=== PATIENT | male | born 1985 | race Caucasian/White ===

== ENCOUNTER 2020-07-29 06:55 | Day surgery (SDC) | payer OTHER ==
[~2020-07-29 06:55] MED LIST: Dextrose 5%-0.45% NaCl 1,000 ML IV SCH; Midazolam 1 MG/ML 2 ML SDV ONE; Sodium Chloride 0.9% 10 ML Syringe FLUSH PRN; fentaNYL 100 MCG/2 ML SDV ONE
[2020-07-29] MEDS ORDERED: fentaNYL 100 MCG/2 ML SDV IV ONE ×3 (06:56→07:47)
[2020-07-29] MEDS ORDERED: Midazolam 1 MG/ML 2 ML SDV IV ONE ×3 (06:56→07:48)
--- NOTE | 2020-07-29 08:40 | OR ---
DATE: 07/29/2020 PROCEDURES: Esophagogastroduodenoscopy and multiple pinch biopsies. INSTRUMENT USED: GIF-HQ190 Olympus video panendoscope. PREMEDICATIONS: No oral or topical anesthesia used. Fentanyl 100 mcg intravenous, Versed 2 mg intravenous. The procedure was done under pulse oximetry, BP recording, and manager monitoring. INDICATION: The patient with persistent abdominal pain, bloating as well as diarrhea, unexplained and not responsive to medical measures. Esophagogastroduodenoscopy is performed for detection of any active erosive lesions, Banerjee esophagus and/or malignancy also under consideration, biopsies to be obtained for any evidence of celiac disease, H pylori status to be determined, endoscopic hemostasis therapy if needed. DESCRIPTION OF PROCEDURE: The scope was passed with ease. Adequate visualization of the esophagus was made. No stricture. No uphill or downhill esophageal varices. No Maggie-Aburto tear. No evidence of erosive esophagitis by [place] criteria. No esophageal polyp or tumor mass identified. Z-line was seen at around 40 cm distal to the oral verge, configuration consistent with grade 1 by ZAP classification. No proximal gastric varices noted. Gastric fundus examination by retroflexion showed no polypoid lesions. No gastric ulcer, malignant mass, or vascular ectasia identified. Significant amount of bilious material was noted. Duodenal bulb showed no ulcer. Visualized second part of the duodenum was unremarkable. Multiple pinch biopsies, 4 in number, were taken from different areas of the second part of the duodenum and tissues were also obtained from the duodenal bulb at 9 and 12 o'clock positions and sent for any histopathologic evidence of celiac disease. Multiple pinch biopsies were also taken from the gastric antrum and proximal body and sent for PyloriTek test for H pylori and histopathology. No bleeding was noted from any of the visualized areas at the completion of examination. Photographs were taken of the duodenal bulb, gastric antrum, fundus, and distal esophagus. IMPRESSION: Normal study. The patient tolerated the procedure well. [facility] /[id number]
--- NOTE | 2020-07-29 09:20 | LETTER ---
07/29/2020 Vanna Rivas NP [facility] and [address] [id number] RE: STEFVINEET Gosia : 1985 Dear Ms. Rivas: Mr. Vineet Peck had esophagogastroduodenoscopy done this morning and he tolerated the procedure well. I herewith send a copy of the endoscopy note and photographs for your review. Thank you. Sincerely, [facility] /[id number]
== END 2020-07-29 10:04 | disposition home or self-care (01) ==
LOC: DL.ENDO 06:55
PROVIDERS: ATTEND Internal Medicine Gastroenterology
DX: K29.80 Duodenitis without bleeding (principal); K31.89 Other diseases of stomach and duodenum; K29.50 Unspecified chronic gastritis without bleeding; Z90.49 Acquired absence of other specified parts of digestive tract
CPT/HCPCS: 43239; 87077; J2250; J3010; J7042